=== PATIENT | female | born 1945 | race Caucasian/White ===

== ENCOUNTER 2019-06-05 15:01 | Emergency (ER) | payer MEDICARE, OTHER ==
[2019-06-05 15:31] VITALS: BP 138/82
--- NOTE | 2019-06-05 15:38 | UC ---
Lower Extremity/Ankle HPI - HPI Summary HPI Summary: 73-year-old female who dropped a large bottle of soda on her right foot 3 weeks ago while at work. She complains of continued pain to the right fifth toe. That was the only toe involved and was quite bruised the time of the injury. - History of Current Complaint Chief Complaint: UCLowerExtremity Stated Complaint: RIGHT FOOT INJURY- WC 05/14/19 Time Seen by Provider: 06/05/19 15:37 Hx Obtained From: Patient ?: No Onset/Duration: Sudden Onset Severity Initially: Moderate Severity Currently: Mild Pain Intensity: 1 Aggravating Factor(s): Ambulation Alleviating Factor(s): Elevation Able to Bear Weight: Yes Related History: Occupational Injury - Allergies/Home Medications Allergies/Adverse Reactions: Allergies Allergy/AdvReac Type Severity Reaction Status Date / Time aspirin Allergy Hives Verified 06/05/19 15:31 Sulfa (Sulfonamide Allergy Hives Verified 06/05/19 15:31 Antibiotics) Home Medications: Home Medications Ascorbic Acid TAB* [Vitamin C TAB*] 500 mg PO DAILY 06/05/19 [History Confirmed 06/05/19] Calcium Carbonate [Calcium] 1,200 mg PO 06/05/19 [History] Cholecalciferol TAB* [Vitamin D TAB*] 400 unit PO DAILY 06/05/19 [History Confirmed 06/05/19] Cranberry 400 mg PO DAILY 06/05/19 [History Confirmed 06/05/19] Folic Acid TAB* [Folvite TAB*] 1 mg PO DAILY 06/05/19 [History Confirmed ] Levothyroxine TAB* [Synthroid TAB*] 100 mcg PO DAILY 06/05/19 [History Confirmed 06/05/19] Multivitamin [Multivitamins] 1 cap PO DAILY 06/05/19 [History Confirmed 06/05/19 ] Omeprazole 40 mg PO DAILY 06/05/19 [History Confirmed 06/05/19] Vitamin B Complex CAP* [B Complex CAP*] 1 cap PO DAILY 06/05/19 [History Confirmed 06/05/19] PMH/Surg Hx/FS Hx/Imm Hx Previously Healthy: Yes - Surgical History Surgical History: Yes Surgery Procedure, Year, and Place: tubes tied - Family History Known Family History: Positive: Non-Contributory - Social History Lives: With Family Alcohol Use: Occasionally Substance Use Type: None Smoking Status (MU): Former Smoker When Did the Patient Quit Smoking/Using Tobacco: 2001 Review of Systems All Other Systems Reviewed And Are Negative: Yes Skin: Positive: Other - Mild redness to the toe with swelling. Bruising has resolved. Musculoskeletal: Positive: Other: - Continued pain right fifth toe. Is Patient Immunocompromised?: No Physical Exam Triage Information Reviewed: Yes Appearance: Well-Appearing, No Pain Distress, Well-Nourished Vital Signs: Initial Vital Signs Temp 98.1 F 06/05/19 15:23 Pulse 72 06/05/19 15:23 Resp 18 06/05/19 15:23 BP 138/82 06/05/19 15:23 Pulse Ox 98 06/05/19 15:23 Vital Signs Reviewed: Yes Musculoskeletal: Positive: Strength Intact, ROM Intact Neurological: Positive: Alert, Muscle Tone Normal Psychological Exam: Normal Skin: Positive: Other - The right fifth toe is mildly swollen and mildly erythematous but not warm to touch. I don't find any source of infection. Lower Extremity Course/Dx - Course Course Of Treatment: The patient is comfortable here. I think she's been irritating the toe because she's been wearing her sneakers and we gave her a postop shoe to wear for comfort and to follow-up with the orthopedist by phone today to make an appointment in the next few days. - Differential Dx/Diagnosis Provider Diagnosis: Fractured toe Discharge ED - Sign-Out/Discharge Documenting (check all that apply): Patient Departure All imaging exams completed and their final reports reviewed: Yes - Discharge Plan Condition: Good Disposition: HOME Patient Education Materials: Toe Fracture (ED) Referrals: José Cottrell PA [Primary Care Provider] - Hellen Duarte MD [Medical Doctor] - Additional Instructions: Elevate as much as possible, keep the postop shoe on until seen by Dr. Albarran for evaluation. Call her office today or tomorrow and make an appointment. He may continue Tylenol or ibuprofen for pain. - Billing Disposition and Condition Condition: GOOD Disposition: Home - Attestation Statements Provider Attestation: I was available for consult. This patient was seen by the DREA. The patient was not presented to, seen by, or examined by me. -Mihai
== END 2019-06-05 16:14 | disposition home or self-care (01) ==
LOC: UCCORT 15:01
DX: S92.911A Unspecified fracture of right toe(s), initial encounter for closed fracture (principal); Y99.0 Civilian activity done for income or pay; Z88.6 Allergy status to analgesic agent; Z88.2 Allergy status to sulfonamides; Z87.891 Personal history of nicotine dependence; W04.XXXA Fall while being carried or supported by other persons, initial encounter; Y92.9 Unspecified place or not applicable
CPT/HCPCS: 99212; G0463